=== PATIENT | male | born 1980 | race Caucasian/White ===

== ENCOUNTER 2019-06-26 18:35 | Emergency (ER) | payer SELFPAY ==
[2019-06-26 18:55] VITALS: BP 152/97; PULSE 86; RESP 20; TEMP 36.7; O2SAT 98; BMI 27.3
--- NOTE | 2019-06-26 22:05 | ECG_ITS ---
Measurements Intervals [place] Rate: 101 P: 68 MA: 125 QRS: 73 QRSD: 93 T: 48 QT: 324 QTc: 420 SINUS TACHYCARDIA POSSIBLE LEFT ATRIAL ENLARGEMENT [-0.1mV P WAVE IN V1/V2] ABNORMAL RHYTHM ECG No previous ECG available for comparison Electronically Signed On 06-27-2019 16:50:16 [employer] by Matthew Lugo M.D. [email or web address]
== END 2019-06-26 20:22 | disposition left against medical advice (07) ==
LOC: ER 19:00
PROVIDERS: Emergency Provider Physician Assistant; Family Provider Social Worker Clinical
DX: Z53.21 Procedure and treatment not carried out due to patient leaving prior to being seen by health care provider (principal)
CPT/HCPCS: 93005; 99281